=== PATIENT | female | born 1965 | race Two or more races ===

== ENCOUNTER 2023-11-18 10:48 | Emergency (ER) | payer MEDICAID ==
[~2023-11-18] VITALS: Ht 160 cm; Wt 82.9 kg
[~2023-11-18 10:48] MED LIST: ACET-1079
[2023-11-18 11:49] VITALS: BP 159/92; TEMP 97.3
[2023-11-18 11:53] VITALS: PULSE 78; RESP 16; O2SAT 97
[2023-11-18] MEDS ORDERED: BENZ100C97 PO (12:52)
[2023-11-18] MEDS ORDERED: LORA10CA PO (12:52)
[2023-11-18] MEDS ORDERED: ACET500T58 PO (12:52)
== END 2023-11-18 13:04 | disposition home or self-care (01) ==
LOC: ER 10:48
DX: J06.9 Acute upper respiratory infection, unspecified (principal); B97.89 Other viral agents as the cause of diseases classified elsewhere; R07.89 Other chest pain
CPT/HCPCS: 71046